=== PATIENT | female | born 1950 | race Hispanic/Latino ===

== ENCOUNTER → 2019-02-10 | Outpatient (CLI) | payer BC | END | disposition home or self-care (01) | LOC: RAH 02-09 09:18 | PROVIDERS: ATTEND Internal Medicine | DX: K82.8 Other specified diseases of gallbladder (principal); I70.0 Atherosclerosis of aorta | CPT/HCPCS: 76700 ==

== ENCOUNTER 2019-02-22 08:59 | Inpatient (IN) | payer MEDICARE ==
[~2019-02-22] VITALS: Ht 152.4 cm; Wt 40.8 kg
[2019-02-22] VITALS (16 sets, daily range): BP systolic 132–163; BP diastolic 60–94
[~2019-02-22 08:59] MED LIST: LIDOCAINE HCL 1% 20 ML VIAL ONE; SODIUM CHLORIDE 0.9% 1000ML 1,000 ML IV ONE
[2019-02-22] MEDS ORDERED: IOHEXOL-350 50ML VIAL IV ONE (11:19)
[2019-02-22] MEDS ORDERED: FENTANYL CITRATE PF 50 MCG/1 ML 2ML VIAL ONE (12:10)
[2019-02-22] MEDS ORDERED: SUCCINYLCHOLINE 200MG/10ML SYR ONE (12:10)
[2019-02-22] MEDS ORDERED: INDOMETHACIN 50 MG SUPP.RECT RC SCH (12:15)
[2019-02-22] MEDS ORDERED: ONDANSETRON HCL 4 MG/2 ML VIAL ONE ×2 (12:47→14:48)
[2019-02-22] MEDS ORDERED: ACET-2743 PO (12:51)
[2019-02-22] MEDS ORDERED: MIRALAX (12:51)
[2019-02-22] MEDS ORDERED: MOTRIN (12:51)
[2019-02-22] MEDS ORDERED: MULT1CAP32 PO (12:51)
[2019-02-22] MEDS ORDERED: DICY20TA11 PO (12:51)
[2019-02-22] MEDS ORDERED: VITA1CAP PO (12:51)
[2019-02-22] MEDS ORDERED: [UNRECOGNIZED DRUG - OTHER] (12:51)
[2019-02-22 12:52] LABS: ALBUMIN 2.7 g/dL (3.5-5.0); BILIRUBIN,TOTAL 6.2 mg/dL (0.2-1.0); CREATININE 0.6 mg/dL (0.5-1.5); POTASSIUM 3.8 mmol/L (3.5-5.1); TOTAL PROTEIN, SERUM 6.1 g/dL (6.0-8.3)
[2019-02-22] MEDS ORDERED: GLUCAGON 1MG KIT 1 MG ML ONE (13:02)
[2019-02-22 13:14] LABS: BASOPHILS % (AUTO) 0.4 % (0.0-5.0); EOSINOPHILS % (AUTO) 0.4 % (0.0-8.0); HEMATOCRIT 27.1 % (36-48); LYMPHOCYTES % (AUTO) 3.8 % (21.0-51.0); MEAN CORPUSCULAR HEMOGLOBIN 34.4 pg (27.0-33.0); MEAN CORPUSCULAR HGB CONC 36.6 g/dL (32.0-36.0); MEAN CORPUSCULAR VOLUME 93.8 fL (79-99); MONOCYTES % (AUTO) 7.2 % (3.0-13.0); NEUTROPHILS % (AUTO) 88.2 % (40.0-77.0); PLATELET COUNT (AUTO) 681 K/uL (130-400); RED BLOOD CELL COUNT(AUTO) 2.89 MIL/uL (4.00-5.50); RED CELL DISTRIBUTION WIDTH 14.5 % (11.0-15.5); WHITE BLOOD COUNT (AUTO) 10.6 K/uL (4.8-10.8)
[2019-02-22] MEDS ORDERED: DIATR MEGLU/DIATRIZOATE SODIUM 30 ML BOTTLE ONE (16:31)
[2019-02-22] MEDS ORDERED: IOHEXOL-350 75 ML VIAL IV ONE (16:32)
[2019-02-22] MEDS ORDERED: ONDANSETRON HCL 4 MG/2 ML VIAL IVP PRN (17:45)
[2019-02-22] MEDS ORDERED: HYDRALAZINE HCL 20 MG/ML VIAL IV PRN (18:00)
[2019-02-22] MEDS ORDERED: HYDROCODONE/ACETAMINOPHEN 5/325 MG TAB PO PRN (18:00)
[2019-02-22] MEDS ORDERED: TEMAZEPAM 7.5 MG CAPSULE PO PRN (18:00)
[2019-02-22] MEDS ORDERED: ACETAMINOPHEN 325 MG TAB PO PRN ×2 (18:00)
[2019-02-22] MEDS ORDERED: ONDANSETRON HCL 4 MG/2 ML VIAL IV PRN (18:00)
[2019-02-22] MEDS ORDERED: MORPHINE SULFATE 4 MG/1ML SYG IV PRN (18:00)
[2019-02-22] MEDS: SODIUM CHLORIDE 0.9% 1000ML 1,000 ML IV SCH (18:46)
[2019-02-22 18:54] LABS: MAGNESIUM 2.1 mg/dL (1.80-2.40); PHOSPHORUS 3.3 mg/dL (2.5-4.9)
[2019-02-22] MEDS: FAMOTIDINE/PF 20 MG/2 ML VIAL IV SCH (22:07)
[2019-02-23] VITALS (20 sets, daily range): BP systolic 99–142; BP diastolic 59–98
[2019-02-23] MEDS: SODIUM CHLORIDE 0.9% 1000ML 1,000 ML IV SCH ×3 (01:46→21:50)
[2019-02-23 05:05] LABS: BASOPHILS % (AUTO) 0.5 % (0.0-5.0); EOSINOPHILS % (AUTO) 0.5 % (0.0-8.0); HEMATOCRIT 27.2 % (36-48); LYMPHOCYTES % (AUTO) 4.3 % (21.0-51.0); MEAN CORPUSCULAR HEMOGLOBIN 34.2 pg (27.0-33.0); MONOCYTES % (AUTO) 9.3 % (3.0-13.0); NEUTROPHILS % (AUTO) 85.4 % (40.0-77.0); PLATELET COUNT (AUTO) 660 K/uL (130-400); RED BLOOD CELL COUNT(AUTO) 2.86 MIL/uL (4.00-5.50); WHITE BLOOD COUNT (AUTO) 9.7 K/uL (4.8-10.8)
[2019-02-23 05:11] LABS: INR 0.95 (0.85-1.15)
[2019-02-23 05:29] LABS: ALBUMIN 2.5 g/dL (3.5-5.0); BILIRUBIN,TOTAL 2.5 mg/dL (0.2-1.0); CREATININE 0.5 mg/dL (0.5-1.5); POTASSIUM 3.1 mmol/L (3.5-5.1); TOTAL PROTEIN, SERUM 5.6 g/dL (6.0-8.3)
[2019-02-23] MEDS ORDERED: POTASSIUM CHLORIDE 10% ELIXIR 20 MEQ/15 ML UDCUP PO PRN (07:00)
[2019-02-23] MEDS ORDERED: PROPOFOL 10 MG/ML 20ML VIAL IV ONE (07:04)
[2019-02-23] MEDS ORDERED: LIDOCAINE HCL 1% 20 ML VIAL ONE (07:05)
[2019-02-23] MEDS ORDERED: GLYCOPYRROLATE 0.2 MG/ML 5 ML VIAL ONE (07:05)
--- NOTE | 2019-02-23 08:23 | NUR ---
NOTIFIED DR. BLAKE'S PA KAVITHA MERAZ FOR THE CONSULT.
--- NOTE | 2019-02-23 09:16 | NUR ---
call dr beal office for the consult.
[2019-02-23] MEDS: FAMOTIDINE/PF 20 MG/2 ML VIAL IV SCH ×2 (09:53→21:50)
[2019-02-23] MEDS: ENOXAPARIN SODIUM 40 MG/0.4 ML SYRINGE SQ SCH (09:54)
--- NOTE | 2019-02-23 11:30 | NUR ---
KAVITHA MERAZ AT THE BEDSIDE, DISCUSSED PLAN OF CARE TO THE PATIENT. NO SURGICAL INTERVENTION IS PLANNED AT THIS TIME. SHE VERBALIZED ABOUT LIVER BIOPSY BUT WOULD WANT DR. MEDINA'S RECOMMENDATION IF THIS IS NECESSARY.
--- NOTE | 2019-02-23 13:00 | NUR ---
INITIAL MET W PATIENT , ALONE, [place], LIVES ALONE, ACTIVE INDEPENDENT, NO DME/HH/PROV; FAMILY IN AREA, DAUGHTER [facility] WILL PROVIDE TRANSPORT HOME PT STATES WAITING ON PANCREAS BIOPSY. ADVISED THAT BIOPSY RESULTS DO TAKE AND SHE MIGHT BE WELL ENOUGH TO GO HOME BEFORE THE RESULTS ARE BACK DCP IS HOME, CM TO FOLLOW Addendum: 02/23/19 at 1606 by MARY STOLL RN CM Amended: Links added.
--- NOTE | 2019-02-23 17:30 | NUR ---
DR. MEDINA WAS AT THE BEDSIDE AND DISCUSSED TO THE PATIENT HER CONDITION. HE RECOMMENDED TO WAIT FOR THE RESULT OF THE BIOPSY AND NOT TO DO LIVER BIOPSY AT THIS TIME UNTIL WILL HAVE THE RESULT OF THE PANCREATIC BIOPSY.
[2019-02-23] MEDS ORDERED: METOCLOPRAMIDE 10 MG/2 ML VIAL IVP SCH (18:15)
[2019-02-23] MEDS: POTASSIUM CHLORIDE 20MEQ/100ML 100 ML IV PRN (22:06)
[2019-02-23] MEDS: LIDOCAINE HCL-MPF 1% 2ML VIAL IV PRN (22:06)
[2019-02-23] MEDS: HYDROCODONE/ACETAMINOPHEN 5/325 MG TAB PO PRN (22:16)
[2019-02-24 01:00] VITALS: BP 125/71
[2019-02-24 04:10] VITALS: BP 136/70
[2019-02-24 05:01] LABS: HEMATOCRIT 26.7 % (36-48); MEAN CORPUSCULAR HEMOGLOBIN 33.7 pg (27.0-33.0); MEAN CORPUSCULAR HGB CONC 35.2 g/dL (32.0-36.0); MEAN CORPUSCULAR VOLUME 95.9 fL (79-99); PLATELET COUNT (AUTO) 666 K/uL (130-400); RED BLOOD CELL COUNT(AUTO) 2.79 MIL/uL (4.00-5.50); RED CELL DISTRIBUTION WIDTH 14.4 % (11.0-15.5); WHITE BLOOD COUNT (AUTO) 7.1 K/uL (4.8-10.8)
[2019-02-24 05:13] LABS: CREATININE 0.5 mg/dL (0.5-1.5); MAGNESIUM 1.8 mg/dL (1.80-2.40); POTASSIUM 3.3 mmol/L (3.5-5.1)
[2019-02-24] MEDS: MAGNESIUM 2GM PREMIX 50ML 50 ML IV PRN (05:34)
[2019-02-24] MEDS: SODIUM CHLORIDE 0.9% 1000ML 1,000 ML IV SCH ×2 (06:39→18:24)
[2019-02-24] MEDS: POTASSIUM CHLORIDE 20MEQ/100ML 100 ML IV PRN (06:40)
[2019-02-24] MEDS: LIDOCAINE HCL-MPF 1% 2ML VIAL IV PRN (06:40)
[2019-02-24 08:00] VITALS: BP 129/72
[2019-02-24] MEDS: METOCLOPRAMIDE 10 MG TABLET PO SCH ×3 (08:00→17:04)
--- NOTE | 2019-02-24 08:40 | NUR ---
PATIENT UPDATE Medicated once last night with norco 2 tabs for abd pain with a score of 8/10 which afforded relief, pt slept well overnight. Consent secured for the portacath placement this am. Dr. Kothari rounded early this am, updated with pt's present status with orders to get the daughter to come and see him in the office. Patient covered with both the potassium protocol as well as the magnesium protocol. New piv line started on the rt wrist.
[2019-02-24] MEDS: ENOXAPARIN SODIUM 40 MG/0.4 ML SYRINGE SQ SCH (09:00)
[2019-02-24] MEDS: FAMOTIDINE/PF 20 MG/2 ML VIAL IV SCH ×2 (09:58→22:00)
[2019-02-24 11:33] VITALS: BP 133/80
[2019-02-24] MEDS: HYDROCODONE/ACETAMINOPHEN 5/325 MG TAB PO PRN (12:54)
[2019-02-24] MEDS: POTASSIUM CHLORIDE 20 MEQ ERTAB PO PRN ×2 (15:29→17:04)
[2019-02-24 16:00] VITALS: BP 138/75
--- NOTE | 2019-02-24 16:55 | NUR ---
RDSCREEN - BMI 17.1 Pt admitted for Pancreatitis, Abnormal LFTs, HLD, Diverticulitis. Pt CT results pending pancreatic mass, possible metastatic disease as per EMR. Pt diet held at time of visit. When medically feasible, recommend to resume diet and advance as tolerated to GI Soft/Spencer, Low Fat Diet. Pt BMI 17.6, underweight classification. Pt previously with poor appetite, wt loss of 10-15lbs within 3mos. Pt LBM 02/23/19. Pt monitored labs: Na 133, K 3.3, Cl 95, BUN 2, Glu 123, Ca 8.2, T. Bili 2.5, AST 215, ALT 450, Alk 430, Alb 2.5, Lipase 721. RD to continue to monitor. Please notify RD as nutritional concerns arise. Thank you. Addendum: 02/24/19 at [address] RD Amended: Links added.
[2019-02-24] MEDS ORDERED: MORPHINE SULFATE 4 MG/1ML SYG IV PRN (17:45)
[2019-02-24 19:10] VITALS: BP 125/82
[2019-02-25] VITALS (9 sets, daily range): BP systolic 136–154; BP diastolic 80–97
[2019-02-25 04:57] LABS: BASOPHILS % (AUTO) 0.4 % (0.0-5.0); EOSINOPHILS % (AUTO) 1.9 % (0.0-8.0); HEMATOCRIT 24.6 % (36-48); LYMPHOCYTES % (AUTO) 4.6 % (21.0-51.0); MEAN CORPUSCULAR VOLUME 94.2 fL (79-99); MONOCYTES % (AUTO) 7.9 % (3.0-13.0); NEUTROPHILS % (AUTO) 85.2 % (40.0-77.0); PLATELET COUNT (AUTO) 688 K/uL (130-400); RED BLOOD CELL COUNT(AUTO) 2.61 MIL/uL (4.00-5.50); RED CELL DISTRIBUTION WIDTH 14.8 % (11.0-15.5); WHITE BLOOD COUNT (AUTO) 7.8 K/uL (4.8-10.8)
[2019-02-25 05:25] LABS: CREATININE 0.5 mg/dL (0.5-1.5); MAGNESIUM 1.9 mg/dL (1.80-2.40); POTASSIUM 3.3 mmol/L (3.5-5.1)
[2019-02-25] MEDS: LIDOCAINE HCL-MPF 1% 2ML VIAL IV PRN (06:35)
[2019-02-25] MEDS: POTASSIUM CHLORIDE 20MEQ/100ML 100 ML IV PRN ×2 (06:35→12:23)
[2019-02-25] MEDS: METOCLOPRAMIDE 10 MG TABLET PO SCH ×3 (08:00→17:23)
--- NOTE | 2019-02-25 08:11 | NUR ---
PATIENT UPDATE Keeping npo for the portacath placement today. With orders for discharge after portacath placement , to followup with post discharge.
[2019-02-25] MEDS: ENOXAPARIN SODIUM 40 MG/0.4 ML SYRINGE SQ SCH (09:00)
[2019-02-25] MEDS: SODIUM CHLORIDE 0.9% 1000ML 1,000 ML IV SCH ×2 (10:42→14:32)
[2019-02-25] MEDS: FAMOTIDINE/PF 20 MG/2 ML VIAL IV SCH (10:42)
[2019-02-25] MEDS ORDERED: LIDOCAINE 1%-EPI 1:100,000 20 ML VIAL IJ ONE (12:30)
[2019-02-25] MEDS ORDERED: LIDOCAINE HCL 1% MDV 50ML VIAL ONE (12:30)
[2019-02-25] MEDS ORDERED: OCTYL 2-CYANOACRYLATE 1 EACH TP ONE (13:10)
[2019-02-25] MEDS: MAGNESIUM 2GM PREMIX 50ML 50 ML IV PRN (14:27)
--- NOTE | 2019-02-25 19:45 | NUR ---
DISCHARGE Patient had Port-A-Cath placement as ordered and was placed on bedrest per IR orders. After that, patient is going home. Dr. Rocha came and saw patient and wrote prescription for tramadol. Patient verbalized and demonstrated understanding. Hep lock removed from right arm at the antecubital site # 20g; no issues; IV catheter removed intact.
== END 2019-02-25 20:00 | disposition home or self-care (01) | DRG 435 ==
LOC: DAH 08:59 → ENDO 08:59 → 3BH 09:00
PROVIDERS: ADMIT Internal Medicine; ATTEND Internal Medicine
PROC: 0F798DZ Dilation of Common Bile Duct with Intraluminal Device, Via Natural or Artificial Opening Endoscopic (ICD-10-PCS; 2019-02-22)
PROC: BF101ZZ Fluoroscopy of Bile Ducts using Low Osmolar Contrast (ICD-10-PCS; 2019-02-22)
PROC: 0FBG8ZX Excision of Pancreas, Via Natural or Artificial Opening Endoscopic, Diagnostic (ICD-10-PCS; principal; 2019-02-23)
PROC: 02H633Z Insertion of Infusion Device into Right Atrium, Percutaneous Approach (ICD-10-PCS; 2019-02-25)
PROC: B548ZZA Ultrasonography of Superior Vena Cava, Guidance (ICD-10-PCS; 2019-02-25)
DX: C25.9 Malignant neoplasm of pancreas, unspecified (principal); K85.90 Acute pancreatitis without necrosis or infection, unspecified; C78.7 Secondary malignant neoplasm of liver and intrahepatic bile duct; K57.90 Diverticulosis of intestine, part unspecified, without perforation or abscess without bleeding; E78.5 Hyperlipidemia, unspecified; D64.9 Anemia, unspecified; F17.210 Nicotine dependence, cigarettes, uncomplicated; Z82.49 Family history of ischemic heart disease and other diseases of the circulatory system; Z90.710 Acquired absence of both cervix and uterus; Z98.891 History of uterine scar from previous surgery; Z88.8 Allergy status to other drugs, medicaments and biological substances
CPT/HCPCS: 36415; 36561; 43238; 43264; 43274; 74170; 74330; 77001; 80048; 80053; 82270; 82378; 83630; 83690; 83735; 84100; 84145; 85025; 85027; 85610; 86316; 86850; 86900; 86901; 87493; 88108; 88162; 88305; A4606; C1769; C1773; C2625; G0378; J0330; J1610; J1644; J1650; J2270; J2405; J2704; J2765; J3010; J3475; J3480; J3490; J7030; Q9963; Q9967

== ENCOUNTER 2019-04-12 06:26 | Observation (INO) | payer BC, MEDICARE ==
[~2019-04-12 06:26] MED LIST changes: +ACET-2743 PO; +DICY20TA11 PO; -LIDOCAINE HCL 1% 20 ML VIAL ONE; +MIRALAX; +MOTRIN; +MULT1CAP32 PO; -SODIUM CHLORIDE 0.9% 1000ML 1,000 ML IV ONE; +VITA1CAP PO; +[UNRECOGNIZED DRUG - OTHER]
[2019-04-12 07:52] LABS: EOSINOPHILS % (AUTO) 0.1 % (0.0-8.0); LYMPHOCYTES % (AUTO) 4.3 % (21.0-51.0); MEAN CORPUSCULAR HEMOGLOBIN 25.4 pg (27.0-33.0); MEAN CORPUSCULAR HGB CONC 32.5 g/dL (32.0-36.0); MEAN CORPUSCULAR VOLUME 78.2 fL (79-99); MONOCYTES % (AUTO) 4.8 % (3.0-13.0); NEUTROPHILS % (AUTO) 90.4 % (40.0-77.0); PLATELET COUNT (AUTO) 436 K/uL (130-400); RED BLOOD CELL COUNT(AUTO) 3.07 MIL/uL (4.00-5.50); RED CELL DISTRIBUTION WIDTH 17.4 % (11.0-15.5); WHITE BLOOD COUNT (AUTO) 12.2 K/uL (4.8-10.8)
[2019-04-12] MEDS ORDERED: ALBUMIN (HUMAN) 25% 100 ML IV ONE (07:54)
[2019-04-12 08:04] LABS: INR 1.02 (0.85-1.15); PARTIAL THROMBOPLASTIN TIME 26.1 SEC (26.3-35.5); PROTHROMBIN TIME 10.7 SEC (9.6-11.6)
[2019-04-12 08:05] LABS: CREATININE 0.6 mg/dL (0.5-1.5); POTASSIUM 5.1 mmol/L (3.5-5.1)
[2019-04-12] MEDS ORDERED: FENTANYL CITRATE PF 50 MCG/1 ML 2ML VIAL ONE (08:06)
[2019-04-12 08:20] LABS: ALBUMIN 2.3 g/dL (3.5-5.0); BILIRUBIN,TOTAL 2.3 mg/dL (0.2-1.0); TOTAL PROTEIN, SERUM 6.2 g/dL (6.0-8.3)
[2019-04-12 09:12] LABS: LYMPHOCYTES % (MANUAL) 2 % (22-44); MAN.DIFF COMMENT-IMPRESSION MANUAL DIFFERENTIAL; MONOCYTES % (MANUAL) 1 % (2-9); PLATELET MORPHOLOGY COMMENT ADEQUATE; SEGMENTED NEUTROPHILS % 97 % (40-70)
[2019-04-12] MEDS ORDERED: ONDANSETRON HCL 4 MG/2 ML VIAL ONE (09:57)
[2019-04-12] MEDS ORDERED: HYDROMORPHONE 1 MG/1 ML AMP ONE ×2 (09:57→13:48)
[2019-04-12] MEDS ORDERED: SODIUM CHLORIDE 0.9% 1000ML 1,000 ML IV ONE (09:58)
[2019-04-12] MEDS ORDERED: 1/2 NORMAL SALINE 1,000 ML IV SCH (11:00)
[2019-04-12] MEDS ORDERED: ONDANSETRON HCL 4 MG/2 ML VIAL IVP PRN (11:00)
[2019-04-12] MEDS ORDERED: HYDROMORPHONE 1 MG/1 ML AMP IVP PRN (11:00)
--- NOTE | 2019-04-12 14:55 | NUR ---
U/S GD PARACENTESIS PROCEDURE PERFORMED BY DR Maranda GONZALEZ. PUNCTURE SITE RLQ AND PATIENT TOLERATED PROCEDURE WELL. TOTAL REMOVED 3 LITERS OF CLOUDY YELLOW FLUID. END OF PROCEDURE AT 1445. CATHETER REMOVED AND DRESSING APPLIED. NO BLEEDING NOTED. REPORT GIVEN TO Cole CHATMAN RN AND PATIENT TRANSPORTED TO ER VIA STRETCHER AT 1455. AAO X3 WITH NO C/O PAIN. SPECIMEN SENT TO LAB.
--- NOTE | 2019-04-12 16:06 | NUR ---
HOSPICE SW contacted by Claudia buckner in ER. Dr Kothari ordered hospice for pt at dc. SW met with pt and daughter Summer. Daughter states that they have already met with [facility] and signed consents. Daughter states they were waiting on nurse to admit, but came here for paracentesis. Sw educated pt and daughter on hospice services and OOHDNR. Pt stated that she wants to go on hospice but will do it from home after dc. Claudia buckner and VERENICE Dunn is aware
--- NOTE | 2019-04-12 16:53 | NUR ---
DISCHARGE PLANS TO HOME TO FOLLOW UP W HOSPICE FAMILY AND PT WANT TO GO HOME, DO NOT WANT TO BE ADMITTED TO THE FLOOR OVERNIGHT. DR. WORLEY AWARE, GAVE ORDER FOR DC TO BE CANCELLED AND PT CAN GO HOME WITH [facility] ON DISCHARGE. UNABLE TO CANCEL DISCHARGE PER ER DIRECTOR, PT WILL HAVE TO GO AMA, ADVISED PT AND FAMILY, WHO GAVE VERBAL CONSENT FO HOSPICE ORDERS AND CLNICAL TO BE FAXED TO [facility] TO AID ADMISSION CONFIRMED WITH [facility] THAT ITEMS WERE REC'D.
[2019-04-12 20:16] LABS: APPEARANCE BODY FLUID SLIGHTLY CLOUDY (CLEAR); COLOR,BODY FLUID YELLOW (LT YELLOW); SPECIMENTYPE,BODY FLUID ASCITES; TOTAL VOLUME,BODY FLUID 3300 mL
[2019-04-12 20:17] LABS: BODY FLUID RBC 635 /cu. mm.; BODY FLUID WBC 166 /cu. mm.
[2019-04-12 21:36] LABS: BF LYMPHOCYTE 21 %; BF MONOCYTE 2 %; BF OTHER CELLS 2
== END 2019-04-12 16:30 | disposition left against medical advice (07) ==
LOC: EDH 06:26 → EDHIP 08:37
PROVIDERS: ADMIT Internal Medicine; ATTEND Internal Medicine
DX: R18.8 Other ascites (principal); C78.89 Secondary malignant neoplasm of other digestive organs; I70.0 Atherosclerosis of aorta; I10 Essential (primary) hypertension; E78.5 Hyperlipidemia, unspecified; J44.9 Chronic obstructive pulmonary disease, unspecified; F17.210 Nicotine dependence, cigarettes, uncomplicated; Z90.710 Acquired absence of both cervix and uterus; Z79.899 Other long term (current) drug therapy
CPT/HCPCS: 36415; 49083; 80053; 85025; 85610; 85730; 87071; 87205; 89051; G0378; J1170; J2405; J3010; J7030; P9046